=== PATIENT | female | born 1955 | race Caucasian/White ===

== ENCOUNTER → 2019-05-14 11:45 | Outpatient (CLI) | payer OTHER, SELFPAY | PROVIDERS: Visit Provider Physician Assistant | DX: L23.7 Allergic contact dermatitis due to plants, except food (principal); R21 Rash and other nonspecific skin eruption | CPT/HCPCS: 87070; 87077; 87186; 87205 ==

== ENCOUNTER → 2020-02-15 13:43 | Outpatient (CLI) | payer OTHER, SELFPAY ==
[2020-02-17 07:57] LABS: COVID19 Sendout Not Detected (Not Detect)
== END ==
PROVIDERS: Visit Provider Physician Assistant
DX: Z01.818 Encounter for other preprocedural examination (principal)
CPT/HCPCS: 87635

== ENCOUNTER → 2020-02-18 14:31 | Outpatient (CLI) | payer OTHER, SELFPAY ==
--- NOTE | 2020-02-18 15:55 | PM.TREADMILL ---
Cardiac Stress Test Report Referral & Results Date Patient Seen: 02/18/20 Time Patient Seen: 15:55 Requesting provider: Germania Curran Indication: chest pain Rest ECG: sinus rhythm Procedure Note: standard lc protocol 7:01 min 7 METS. Good exercise capacity -7% TORSTEN. Hypertensive response to exercise. No chest pain or anginal symptoms. Resting EKG normal, no ST shifts or arrhythmias. Impression: normal exercise stress test Please note: Actual ECG tracings can be found in the PACS system.
== END ==
PROVIDERS: PCP Family Medicine; Referring Provider Physician Assistant Medical; Visit Provider Physician Assistant Medical
DX: R07.9 Chest pain, unspecified (principal)
CPT/HCPCS: 93017

== ENCOUNTER 2025-04-16 12:11 | Emergency (ER) | payer OTHER, SELFPAY ==
[2025-04-16 12:31] VITALS: BP 150/87; PULSE 64; RESP 18; TEMP 36.7; O2SAT 95; BMI 34.4
--- NOTE | 2025-04-16 15:11 | DI.US.S_ITS ---
PROCEDURE: US PERIPH VENOUS LOW EXTREM LT INDICATIONS: swelling, no injury TECHNIQUE: Real-time imaging, as well as color and pulse Doppler interrogation, were performed of the lower extremity deep veins from the inguinal ligament to the popliteal fossa, with documentation of the visualized calf veins. COMPARISON: None. FINDINGS: The common femoral, femoral, popliteal, and the visualized calf veins are normally compressible, and free of intraluminal thrombus. Color and pulse Doppler demonstrate normal phasic intraluminal flow. There is normal augmentation response to distal compression maneuver. IMPRESSION: No findings of lower extremity deep venous thrombosis. Dictated by: Kael Morillo M.D. on 04/16/2025 at 15:54 Approved by: Kael Morillo M.D. on 04/16/2025 at 15:54
[2025-04-16 16:41] LABS: Culture Indicated Urine Specimen Cultured
--- NOTE | 2025-04-16 16:48 | DI.RAD.S_ITS ---
PROCEDURE: XR TIBIA FIBULA LT 2V INDICATIONS: leg swelling, pain TECHNIQUE: 2 views of the tibia and fibula were acquired. COMPARISON: None. FINDINGS: Bones: No fractures or dislocations. 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 No suspicious bony lesions. Soft tissues: No suspicious soft tissue calcifications or masses. IMPRESSION: No bone abnormality. No suspicious soft tissue finding. Dictated by: Kelsi Serrano M.D. on 04/16/2025 at 17:24 Approved by: Kelsi Serrano M.D. on 04/16/2025 at 17:24
--- NOTE | 2025-04-16 16:48 | DI.RAD.S_ITS ---
PROCEDURE: XR ANKLE LT MIN 3V INDICATIONS: leg swelling TECHNIQUE: Three views of the ankle were acquired. COMPARISON: None. FINDINGS: Bones: No fractures or dislocations. Moderate degenerative changes including spurring at the tibiotalar articulation, dorsal midfoot, and plantar calcaneus. Joint space loss and slight spurring at the medial malleolus. Ankle mortise is normally aligned. No suspicious bony lesions. Soft tissues: No tibiotalar joint effusion. Achilles tendon appears normal. IMPRESSION: No acute abnormality. One chronic appearing degenerative changes. Dictated by: Kelsi Serrano M.D. on 04/16/2025 at 17:22 Approved by: Kelsi Serrano M.D. on 04/16/2025 at 17:24
--- NOTE | 2025-04-16 17:09 | ED_ITS ---
<Statement entered by Alek Edward MD - 05/08/25 07:32> I was personally available for consultation in the Department at the time the patient was seen HPI - Extremity Injury (Lower) General Chief Complaint: Extremity Injury, Lower Stated Complaint: Lt leg swelling, pain x 2 days Time Seen by Provider: 04/16/25 16:38 History of Present Illness HPI Narrative: 70-year-old female presents to the ED with 2 days of left lower leg redness, pain, swelling. No trauma or injuries. No numbness, tingling, weakness. No rashes. Patient is also complaining of suprapubic pressure, urinary discomfort, hematuria since last night. Patient states that she got her last UTI about 30 years ago, no frequent UTIs. No fever, chills, chest pain, shortness of breath, nausea, vomiting, flank pain, lightheadedness, dizziness, syncope. Related Data Home Medications ?Medication ?Instructions ?Recorded ?Confirmed aspirin 81 mg tablet,delayed 81 mg PO DAILY 05/14/19 0 02/24/21 release (Adult Aspirin Regimen) sertraline [Zoloft] PO 05/14/19 02/24/21 Previous Rx's ?Medication ?Instructions ?Recorded cefadroxil 500 mg capsule 1,000 mg (2 x 500 mg) PO Q12 H 10 04/16/25 days #40 caps Allergies Allergy/AdvReac Type Severity Reaction Status Date / Time No Known Drug Allergies Allergy Unverified 02/24/21 14:03 Review of Systems Constitutional Constitutional: Denies chills, Denies fatigue, Denies fever(s), Denies frequent falls, Denies lethargy and Denies weakness Eyes Eyes: Denies change in vision, Denies eye discharge, Denies irritation and Denies loss of vision ENT Ears, Nose, Mouth, and Throat: Denies change in voice, Denies dizziness, Denies neck pain, Denies sore throat and Denies throat swelling Cardiovascular Cardiovascular: Denies chest pain, Denies irregular heart rhythm, Denies lightheadedness, Denies palpitations, Denies dyspnea, Denies dyspnea on exertion and Denies orthopnea Respiratory Respiratory: Denies cough, Denies dyspnea, Denies dyspnea on exertion and Denies wheezing Gastrointestinal Gastrointestinal: Denies abdominal pain, Denies change in bowel habits, Denies diarrhea, Denies nausea and Denies vomiting Genitourinary Genitourinary: Reports hematuria and Reports dysuria Comments: Suprapubic pressure Musculoskeletal Musculoskeletal: Denies neck pain and Denies numbness Integumentary/Breasts Skin/Breast: Denies pruritus, Denies erythema, Denies rash and Denies wounds Neurologic Neurologic: Denies behavioral changes, Denies confusion, Denies dizziness, Denies frequent falls, Denies loss of vision, Denies numbness and Denies weakness Psychiatric Psychiatric: Denies anxiety, Denies behavioral changes, Denies confusion, Denies depression, Denies homicidal ideation and Denies suicidal ideation Endocrine Endocrine: Denies fatigue, Denies flushing and Denies palpitations Hematologic/Lymphatic Hematologic/Lymphatic: Denies easy bruising Allergic/Immunologic Allergic/Immunologic: Denies urticaria, Denies throat swelling and Denies wheezing Patient History Smoking Status: Never smoker Exam Narrative Exam Narrative: Const General:?cooperative, healthy appearing and comfortable [facility] Head:?normal to inspection Ears:?hearing grossly normal bilaterally Nose:?external nose normal Face and sinus:?normal facial exam and sinuses nontender Mouth:?oral mucosae normal Throat:?posterior oropharynx normal Eyes General:?appearance normal, both eyes and all related structures Neck Neck:?normal visual inspection and no lymphadenopathy noted Resp Effort & Inspection:?normal respiratory effort Auscultation:?clear to auscultation bilaterally Cardio Rate:?regular rate Rhythm:?regular rhythm GI Abdomen is soft, nondistended, nontender to palpation. No CVA tenderness. Musculoskeletal/integumentary Left ankle, distal lower leg somewhat warm and tender to touch, erythematous, sw ollen. Neurovascularly intact Neuro General:?patient alert, patient awake and patient oriented x3 Initial Vital Signs Initial Vital Signs: Vital Signs Temperature 98.1 F 04/16/25 12:31 Pulse Rate 64 04/16/25 12:31 Respiratory Rate 18 04/16/25 12:31 Blood Pressure 150/87 H 04/16/25 12:31 Pulse Oximetry 95 04/16/25 12:31 Oxygen Delivery Method Room Air 04/16/25 12:31 Course Orders Ordered: ED Orders 04/16/25 12:45 Urine Culture Stat Urine Microscopic Stat 04/16/25 15:11 US periph venous low extrem lt Stat 04/16/25 16:48 XR ankle LT min 3V Stat XR tibia fibula LT 2V Stat Ondansetron HCl (Ondansetron 4 Mg/2 Ml Inj) 4 mg IV NOW PRN PRN Reason: Nausea And Vomiting Ondansetron HCl (Ondansetron 4 Mg Odt) 4 mg PO NOW PRN PRN Reason: Nausea And Vomiting Vital Signs Vital signs: Vital Signs - 8 hr 04/16/25 12:31 Temperature 98.1 F Pulse Rate 64 Respiratory Rate 18 Blood Pressure 150/87 H Pulse Oximetry 95 Oxygen Delivery Method Room Air MDM - Extremity Injury (Lower) Lab Data Labs: Lab Results 04/16/25 Range/Units 12:45 Urine RBC >100/hpf H (0-5/HPF) Urine WBC >100/hpf H (0-5/HPF) Ur Squamous Epith Cells 1-5 /hpf (0-5/HPF) Ur Transition Epith Cell 0-1/hpf (0-5/HPF) Urine Bacteria Few (2-10) H (None) Ur Culture Indicated? Specimen cultured Vol Urine Centrifuged 10ml (spun) Urine Dip Bedside Urine Glucose Negative Bedside Urine Bilirubin - Negative Bedside Urine Ketone - Negative Urine Specific [place] 1.015 Bedside Urine Occult Blood +++ Bedside Urine pH 6.0 Bedside Urine Protein ++ 100 Bedside Urine Urobilinogen - Negative Bedside Urine Nitrite - Negative Bedside Urine Leukocytes +++ 500 Esterase MDM Narrative Medical decision making narrative: 70-year-old female presents to the ED with 2 days of left lower leg redness, pain, swelling. Concern for DVT versus cellulitis versus fracture/dislocation versus UTI versus other. Will obtain x-rays, ultrasound. Ultrasound with no evidence of DVT. Urine is positive for occult blood, leukocyte esterase, protein. Urine micro with RBC greater than 100, WBC greater than 100. X-rays without acute findings. Antibiotic prescribed to cover both UTI and cellulitis. Recommend follow-up with PCP as soon as possible. ED return precautions were discussed with patient. Patient verbalized understanding. Medical records reviewed: Yes Discharge Plan Departure Patient Disposition: Home Clinical Impression: UTI (urinary tract infection) Qualifiers: Urinary tract infection type: acute cystitis Hematuria presence: with hematuria Qualified Code(s): N30.01 - Acute cystitis with hematuria Cellulitis Qualifiers: Site of cellulitis: extremity Site of cellulitis of extremity: lower extremity Laterality: left Qualified Code(s): L03.116 - Cellulitis of left lower limb Instructions: DI for Cellulitis -- Adult, DI for Urinary Tract Infection (UTI) Activity Restrictions/Additional Instructions: You were evaluated in the emergency department for left lower leg pain and urinary discomfort. Your urine was positive for a urinary tract infection. The ultrasound did not show any blood clots/DVTs. The x-ray did not show any fractures or dislocations. It appears that the swelling and redness in your lower liquid likely be a skin infection/cellulitis. You are being prescribed an antibiotic that will address both the urinary tract infection and the skin infection. Please take it as prescribed. Please follow-up with your PCP as soon as possible. Return to the ED if you have worsening symptoms. Prescriptions: New cefadroxil 500 mg capsule 1,000 mg PO Q12H 10 Days Qty: 40 0RF No Action aspirin [Adult Aspirin Regimen] 81 mg tablet,delayed release (DR/EC) 81 mg PO DAILY sertraline [Zoloft] PO Referrals: Lori Mcotezuma DO [Primary Care Provider, Family Practice] Stand Alone Forms: Patient Portal/API
[2025-04-16 18:35] VITALS: BP 150/77; PULSE 63; RESP 15; O2SAT 95
== END 2025-04-16 18:36 | disposition home or self-care (01) ==
PROVIDERS: Emergency Provider Student in an Organized Health Care Education/Training Program; PCP Family Medicine
DX: N30.01 Acute cystitis with hematuria (principal); L03.116 Cellulitis of left lower limb
CPT/HCPCS: 73590; 73610; 81003; 81015; 87077; 87086; 87186; 93971; 99281

== ENCOUNTER 2025-08-21 10:34 | Inpatient (IN) | payer OTHER, SELFPAY ==
[2025-08-21] VITALS (12 sets, daily range): BP systolic 98–183; BP diastolic 58–89; PULSE 60–95; RESP 12–22; TEMP 36.4–36.9; O2SAT 94–99; BMI 32.1; BMI 32.9
--- NOTE | 2025-08-21 11:07 | ED_ITS ---
HPI - GI Bleed <Radha Strange PA-C - Last Filed: 08/21/25 18:52> General Chief complaint: GI Bleed Stated complaint: lower colon pain blood in stool Time Seen by Provider: 08/21/25 11:06 Source: patient Mode of arrival: Ambulatory History of Present Illness HPI Narrative: Ms. Smith is a pleasant 62-year-old female with a past medical history of anxiety, depression, hip osteoarthritis, HLD, insomnia who presents to the emergency department for left lower quadrant abdominal pain x1 week and bright red blood in her stool today. Patient states she deals with the chronic diarrhea and typically has 1-3 loose bowel movements a day. However over the last week she has described left lower quadrant ?colon? pain that originally started near her belly button in his since moved down to the left side. She also reports that she has been having headache and because of this has been taking Excedrin migraine every 8 hours. Her headache is improved. She started feeling shaky and overall weak a few days ago. She occasionally gets strong sense of urgency to have a bowel movement and occasionally does not make it to the toilet. Today this occurred and she noticed bright red blood in 1 small clot of blood mixed in with brown stool. She denies any black or tarry stools. She denies rectal pain. She denies epigastric abdominal pain. She denies vomiting or hematemesis but does report nausea. She denies any prior abdominal surgeries. She denies blood thinner use. Reports that over the last week she has had intermittent left-sided chest pain however this is not currently present. She denies fevers, chills, dysuria, hematuria, flank pain, constipation. Her prescription medications are sertraline, bupropion, meloxicam, pravastatin, trazodone. Reports that she has had a colonoscopy before but she believes she is due for another 1 next year. Related Data Home Medications ?Medication ?Instructions ?Recorded ?Confirmed aspirin 81 mg tablet,delayed 81 mg PO DAILY 05/14/19 0 02/24/21 release (Adult Aspirin Regimen) sertraline [Zoloft] PO 05/14/19 02/24/21 Allergies Allergy/AdvReac Type Severity Reaction Status Date / Time No Known Drug Allergies Allergy Unverified 02/24/21 14:03 Review of Systems <Radha Strange PA-C - Last Filed: 08/21/25 18:52> Review of Systems ROS Unobtainable: All systems reviewed & are unremarkable except as noted in HPI and below Patient History <Radha Strange PA-C - Last Filed: 08/21/25 18:52> Social History Smoking Status: Never smoker Smoking Status: Never smoker Exam <Radha Strange PA-C - Last Filed: 08/21/25 18:52> Narrative Exam Narrative: GENERAL: 70 year old patient appears stated age. Well-developed patient, in no acute distress. HEAD: Atraumatic. Normocephalic. EYES: No scleral icterus. No injection or drainage. NECK: Trachea midline. Cervical ROM intact. CARDIOVASCULAR: Regular rate and rhythm. RESPIRATORY: ?Nonlabored respirations. ?Speaking in clear, full sentences. ?Clear to auscultation. Breath sounds equal bilaterally. No wheezes, rales, or rhonchi. ? GASTROINTESTINAL: Abdomen soft, nondistended. BS present. Mild tenderness left lower quadrant. No rebound or guarding. RECTAL: Soft external skin tag. No visible BRB, fissure or external hemorrhoid. Hemocult negative EXTREMITIES: No LE edema. NEURO: AOx3. ?Clear speech. ? SKIN: No rash or erythema of visible areas Initial Vital Signs Initial Vital Signs: Vital Signs Temperature 97.5 F L 08/21/25 10:44 Pulse Rate 95 H 08/21/25 10:44 Respiratory Rate 18 08/21/25 10:44 Blood Pressure 183/89 H 08/21/25 10:44 Pulse Oximetry 94 08/21/25 10:44 Oxygen Delivery Method Room Air 08/21/25 10:44 <Gloria Montalvo MD - Last Filed: 08/21/25 19:51> Initial Vital Signs Initial Vital Signs: Vital Signs Temperature 97.5 F L 08/21/25 10:44 Pulse Rate 95 H 08/21/25 10:44 Respiratory Rate 18 08/21/25 10:44 Blood Pressure 183/89 H 08/21/25 10:44 Pulse Oximetry 94 08/21/25 10:44 Oxygen Delivery Method Room Air 08/21/25 10:44 Scores <Radha Strange PA-C - Last Filed: 08/21/25 18:52> HEART Score Heart Score history: Slightly Suspicious Heart Score EKG: Non-Specific repolarization disturbance Heart Score Age: > or = 65 years old Heart Score risk factors: 1-2 risk factors Heart Score troponin: < or = to normal limit Heart Score Total: 4 <Gloria Montalvo MD - Last Filed: 08/21/25 19:51> HEART Score Heart Score Total: 4 Course <Radha Strange PA-C - Last Filed: 08/21/25 18:52> Orders Ordered: ED Orders 08/21/25 11:15 XR chest 1V Stat EKG-12 Lead Stat 08/21/25 11:17 CT abdomen pelvis w con Stat 08/21/25 11:40 Complete Blood Count AUTO DIFF Stat Comprehensive Metabolic Panel Stat Lipase Stat Magnesium Stat PTT Partial Thromboplastin Jhon Stat Prothrombin Time INR Stat Troponin I Stat 08/21/25 17:04 Troponin I Stat Acetaminophen (Acetaminophen 325 Mg Tablet) 650 mg PO Q6H PRN PRN Reason: Fever/Mild Pain (1-3) Hydromorphone HCl (Hydromorphone Hcl 0.5 Mg/0.5 Ml Syringe) 0.5 mg IV Q2H PRN PRN Reason: Pain, Severe (7-10) Sodium Chloride (Normal Saline 0.9%) 1,000 mls @ 100 mls/hr IV CONT EARLENE Last Admin: 08/21/25 16:00 Dose: 100 mls/hr Documented By: RB Naloxone HCl (Naloxone 0.4 Mg/Ml Vial) 0.2 mg IV Q2MIN PRN PRN Reason: Opiate Reversal Ondansetron HCl (Ondansetron 4 Mg/2 Ml Inj) 4 mg IV Q8HR PRN PRN Reason: Nausea And Vomiting Discontinued Medications Acetaminophen (Acetaminophen 325 Mg Tablet) 975 mg PO NOW ONE Stop: 08/21/25 11:16 Last Admin: 08/21/25 12:20 Dose: 975 mg Documented By: RB Sodium Chloride (Normal Saline 0.9%) 1,000 mls @ 1,000 mls/hr IV BOLUS ONE Stop: 08/21/25 12:14 Last Infusion: 08/21/25 13:50 Dose: Infused Documented By: Admin: 08/21/25 12:24 Dose: 1,000 mls/hr Documented By: RB POTASSIUM CHLORIDE IN WATER (Potassium Cl 10 Meq/100 Ml Merissa) 10 meq in 100 mls @ 100 mls/hr IV Q1H EARLENE Stop: 08/21/25 16:14 Last Infusion: 08/21/25 17:14 Dose: Infused Documented By: Admin: 08/21/25 15:50 Dose: 100 mls/hr Documented By: Infusion: 08/21/25 15:45 Dose: Infused Documented By: Admin: 08/21/25 14:45 Dose: 100 mls/hr Documented By: Infusion: 08/21/25 14:45 Dose: Infused Documented By: Admin: 08/21/25 13:49 Dose: 100 mls/hr Documented By: Infusion: 08/21/25 13:25 Dose: Infused Documented By: Admin: 08/21/25 12:25 Dose: 100 mls/hr Documented By: RB Ondansetron HCl (Ondansetron 4 Mg/2 Ml Inj) 4 mg IV NOW ONE Stop: 08/21/25 11:16 Last Admin: 08/21/25 12:20 Dose: 4 mg Documented By: RB Pantoprazole Sodium (Pantoprazole 40 Mg Vial) 40 mg IV NOW ONE Stop: 08/21/25 11:16 Last Admin: 08/21/25 12:20 Dose: 40 mg Documented By: RB Vital Signs Vital signs: Vital Signs - 8 hr 08/21/25 12:28 08/21/25 13:52 08/21/25 14:44 Temperature 98.5 F Pulse Rate 74 67 68 Respiratory Rate 22 19 Blood Pressure 109/72 98/69 98/65 Pulse Oximetry 95 94 99 Oxygen Delivery Method Room Air Room Air Room Air 08/21/25 15:00 08/21/25 15:30 Temperature Pulse Rate 64 60 Respiratory Rate 20 18 Blood Pressure 126/58 L 134/63 Pulse Oximetry 95 94 Oxygen Delivery Method Room Air Room Air <Gloria Montalvo MD - Last Filed: 08/21/25 19:51> Orders Ordered: ED Orders 08/21/25 11:15 XR chest 1V Stat EKG-12 Lead Stat 08/21/25 11:17 CT abdomen pelvis w con Stat 08/21/25 11:40 Complete Blood Count AUTO DIFF Stat Comprehensive Metabolic Panel Stat Lipase Stat Magnesium Stat PTT Partial Thromboplastin Jhon Stat Prothrombin Time INR Stat Troponin I Stat 08/21/25 17:04 Troponin I Stat Acetaminophen (Acetaminophen 325 Mg Tablet) 650 mg PO Q6H PRN PRN Reason: Fever/Mild Pain (1-3) Hydromorphone HCl (Hydromorphone Hcl 0.5 Mg/0.5 Ml Syringe) 0.5 mg IV Q2H PRN PRN Reason: Pain, Severe (7-10) Sodium Chloride (Normal Saline 0.9%) 1,000 mls @ 100 mls/hr IV CONT EARLENE Last Admin: 08/21/25 16:00 Dose: 100 mls/hr Documented By: RB Naloxone HCl (Naloxone 0.4 Mg/Ml Vial) 0.2 mg IV Q2MIN PRN PRN Reason: Opiate Reversal Ondansetron HCl (Ondansetron 4 Mg/2 Ml Inj) 4 mg IV Q8HR PRN PRN Reason: Nausea And Vomiting Discontinued Medications Acetaminophen (Acetaminophen 325 Mg Tablet) 975 mg PO NOW ONE Stop: 08/21/25 11:16 Last Admin: 08/21/25 12:20 Dose: 975 mg Documented By: RB Sodium Chloride (Normal Saline 0.9%) 1,000 mls @ 1,000 mls/hr IV BOLUS ONE Stop: 08/21/25 12:14 Last Infusion: 08/21/25 13:50 Dose: Infused Documented By: Admin: 08/21/25 12:24 Dose: 1,000 mls/hr Documented By: RB POTASSIUM CHLORIDE IN WATER (Potassium Cl 10 Meq/100 Ml Merissa) 10 meq in 100 mls @ 100 mls/hr IV Q1H EARLENE Stop: 08/21/25 16:14 Last Infusion: 08/21/25 17:14 Dose: Infused Documented By: Admin: 08/21/25 15:50 Dose: 100 mls/hr Documented By: Infusion: 08/21/25 15:45 Dose: Infused Documented By: Admin: 08/21/25 14:45 Dose: 100 mls/hr Documented By: Infusion: 08/21/25 14:45 Dose: Infused Documented By: Admin: 08/21/25 13:49 Dose: 100 mls/hr Documented By: Infusion: 08/21/25 13:25 Dose: Infused Documented By: Admin: 08/21/25 12:25 Dose: 100 mls/hr Documented By: RB Ondansetron HCl (Ondansetron 4 Mg/2 Ml Inj) 4 mg IV NOW ONE Stop: 08/21/25 11:16 Last Admin: 08/21/25 12:20 Dose: 4 mg Documented By: RB Pantoprazole Sodium (Pantoprazole 40 Mg Vial) 40 mg IV NOW ONE Stop: 08/21/25 11:16 Last Admin: 08/21/25 12:20 Dose: 40 mg Documented By: RB Vital Signs Vital signs: Vital Signs - 8 hr 08/21/25 12:28 08/21/25 13:52 08/21/25 14:44 Temperature 98.5 F Pulse Rate 74 67 68 Respiratory Rate 22 19 Blood Pressure 109/72 98/69 98/65 Pulse Oximetry 95 94 99 Oxygen Delivery Method Room Air Room Air Room Air 08/21/25 15:00 08/21/25 15:30 Temperature Pulse Rate 64 60 Respiratory Rate 20 18 Blood Pressure 126/58 L 134/63 Pulse Oximetry 95 94 Oxygen Delivery Method Room Air Room Air MDM - GI Bleed <Radha Strange PA-C - Last Filed: 08/21/25 18:52> Medical Records Attestation: I reviewed the patient's medical records. Lab Data 08/21/25 11:40 08/21/25 17:04 Labs: Lab Results 08/21/25 Range/Units 11:40 WBC 12.1 H (4.5-11.0) X10^3/uL RBC 4.82 (4.0-5.2) X10^6/uL Hgb 14.2 (12.0-16.0) g/dL Hct 41.7 (36-46) % MCV 86.4 (80-100) fL MCH 29.4 (26-34) PG MCHC 34.0 (30-36) % RDW 13.3 (11.6-14.8) % Plt Count 422 H (150-400) X10^3/uL Neut % (Auto) 76.4 H (50-75) % Lymph % (Auto) 12.8 L (25-40) % [place] % (Auto) 9.4 (3-14) % Eos % (Auto) 0.7 L (2-4) % Baso % (Auto) 0.7 (0-2) % Neut # (Auto) 9200 H (6182-0805) /uL Lymph # (Auto) 1600 (5638-2027) /uL [place] # (Auto) 1100 H (0-900) /uL Eos # (Auto) 100 (0-450) /uL Baso # (Auto) 100 (0-100) /uL PT 12.5 (9.4-12.5) SECONDS INR 1.1 (0.9-1.3) APTT 26 (25.1-36.5) SECONDS Sodium 135 L (137-145) mmol/L Potassium 2.7 L* (3.4-5.1) mmol/L Chloride 94 L (98-107) mmol/L Carbon Dioxide 29 (22-32) mmol/L BUN 12 (7-17) mg/dL Creatinine 0.73 (0.52-1.04) mg/dL Estimated GFR > 60 (>60) mL/min BUN/Creatinine Ratio 16.4 (6-22) Glucose 135 H (70-99) mg/dL Calcium 9.5 (8.4-10.2) mg/dL Magnesium 1.7 (1.6-2.3) mg/dL Total Bilirubin 0.4 (0.2-1.3) mg/dL AST 24 (14-36) IU/L ALT 17 (<35) IU/L Alkaline Phosphatase 90 (38-126) U/L Troponin I < 0.012 (0.01-0.034) ng/mL Total Protein 7.8 (6.3-8.2) g/dL Albumin 4.3 (3.5-5.0) g/dL Globulin 3.5 (1.7-4.1) g/dL Albumin/Globulin Ratio 1.2 (1.0-2.8) Lipase 250 (23-300) U/L Point of Care Testing Stool Occult Blood Negative Imaging Data Chest x-ray: Radiologist's Impression: PROCEDURE: XR CHEST 1V INDICATIONS: int L sided CP, abd pain TECHNIQUE: One view of the chest was acquired. COMPARISON: None. FINDINGS: Surgical changes and devices: None. Lungs and pleura: Lungs are clear. No pleural effusions or pneumothorax. Mediastinum: Mediastinal contours appear normal. Heart size is minimally prominent. Bones and chest wall: No suspicious bony lesions. Overlying soft tissues appear unremarkable. IMPRESSION: No acute pulmonary process. Dictated by: Ruchi Linder M.D. on 08/21/2025 at 12:01 Approved by: Ruchi Linder M.D. on 08/21/2025 at 12:02 CT A/P: Radiologist's Impression: PROCEDURE: CT ABDOMEN PELVIS W CON INDICATIONS: LLQ abd pain; BRB in stool today; chronic diarrhea, nausea TECHNIQUE: After the administration of intravenous contrast, axial sections acquired from the lung bases to the pubic symphysis. Coronal and sagittal reformats were performed. For radiation dose reduction, the following was used: automated exposure control, adjustment of mA and/or kV according to patient size. COMPARISON: None. FINDINGS: Image quality: Diagnostic. Lower Chest: No significant findings. ABDOMEN: Liver: No solid mass. Gallbladder: Luminal stones without wall thickening. Biliary ducts: No biliary dilation. Pancreas: No ductal dilation. Spleen: Size is within normal limits. Adrenal Glands: No adrenal nodules. Kidneys and Ureters: No hydronephrosis. No solid mass. No complex renal cystic lesion which requires follow up. Stomach and Bowel: No obstruction. There is collapse of the sigmoid colon with wall thickening extending to a less severe degree within the descending colon. Very minimal pericolonic inflammatory change.. Hiatal hernia with prominent distal esophageal thickening. Peritoneum: No abnormal intraperitoneal fluid. No free air. Ventral Wall: No significant ventral hernia. Abdominal Nodes: No retroperitoneal or mesenteric adenopathy by size criteria. Multiple punctate mesenteric lymph nodes are present particularly within the lower abdomen and pelvis. Vessels: Aorta and inferior vena cava are normal in size. PELVIS: Pelvic Organs: Unremarkable. Bladder: No bladder wall thickening, accounting for underdistention. Pelvic Nodes: No enlarged lymph nodes. Multiple punctate mesenteric lymph nodes are present within the pelvis. Miscellaneous: No inguinal hernias are seen. Bones: No aggressive osseous abnormality. IMPRESSION: Appearance of thickening and incomplete distention within the left colon as described above. Overall appearance is suspicious for colitis given mild appearance of surrounding inflammatory change. This is likely related to infection/inflammation. No abscess. Dictated by: Ruchi Linder M.D. on 08/21/2025 at 12:54 Approved by: Ruchi Linder M.D. on 08/21/2025 at 12:57 MDM Narrative Medical decision making narrative: 62-year-old female with a past medical history of anxiety, depression, hip osteoarthritis, HLD, insomnia who presents to the emergency department for left lower quadrant abdominal pain x1 week and bright red blood in her stool today. Differential diagnosis includes but is not limited to diverticulitis, diverticulosis, hemorrhoid, anal fissure, colitis, anemia, GI bleed, gastritis, electrolyte abnormality, appendicitis, inflammatory bowel disease, etc. On exam the patient is in no acute distress, nontoxic appearing. Vital signs reveal elevated BP 183/89, heart rate 95, normal respiratory rate, normal temperature, normal oxygen saturation. She has a very mild tenderness to palpation of the left lower quadrant of the abdomen, no rebound or guarding. Lungs are clear to auscultation bilaterally. She had 1 episode of bright red blood in her stool today, she has not experienced this before. She has been taking more NSAIDs than usual due to headache this last week. She has been having intermittent left-sided chest pain not currently present. We will obtain abdominal labs including EKG and troponin, chest x-ray, CT abdomen pelvis with IV contrast, treat with IV Protonix, fluids, nausea medication and reassess. We will perform rectal exam once the patient is able to get into a room with a stretcher. Rectal exam did not reveal any gross blood, no active bleeding, no obvious fissure or hemorrhoid. Labs reveal low potassium, 2.7. 40 mEq IV potassium ordered. Magnesium is normal 1.7. Elevated WBCs 12.1. Platelets slightly elevated 422. Neutrophils 76.4%. Normal coags. Sodium 135, chloride 94. Glucose 135. Troponin undetectable. Normal LFTs. Normal lipase 250. ECG does reveal T-wave inversions V1, V2, V3. Normal sinus rhythm with a rate of 74 beats per minute and QTC of 483. ED MD carranza repeat EKG after potassium repletion. On re-evaluation of patient, she does feel slightly better however still quite weak, blood pressure is on the lower end of normal. Discussed case with the attending ED physician Dr. Montalvo. At this time will hold off on antibiotics for colitis until we can obtain stool culture, however we will treat patient with liquid diet. I do believe she warrants admission to the hospital for continued electrolyte repletion. Urine and stool studies are still pending at this time. Patient is agreeable to admission. 1525: Discussed case with hospitalist, Dr. Bryan. He graciously accepts the patient for admission, observation for continued monitoring of hypokalemia in the setting of colitis. Will try to get records of old EKG from [facility] if possible as patient has no priors available in this system. Patient is agreeable to transfer to the floor and stable at this time. <Gloria Montalvo MD - Last Filed: 08/21/25 19:51> Lab Data Labs: Lab Results 08/21/25 Range/Units 11:40 WBC 12.1 H (4.5-11.0) X10^3/uL RBC 4.82 (4.0-5.2) X10^6/uL Hgb 14.2 (12.0-16.0) g/dL Hct 41.7 (36-46) % MCV 86.4 (80-100) fL MCH 29.4 (26-34) PG MCHC 34.0 (30-36) % RDW 13.3 (11.6-14.8) % Plt Count 422 H (150-400) X10^3/uL Neut % (Auto) 76.4 H (50-75) % Lymph % (Auto) 12.8 L (25-40) % [place] % (Auto) 9.4 (3-14) % Eos % (Auto) 0.7 L (2-4) % Baso % (Auto) 0.7 (0-2) % Neut # (Auto) 9200 H (3824-9500) /uL Lymph # (Auto) 1600 (9711-9437) /uL [place] # (Auto) 1100 H (0-900) /uL Eos # (Auto) 100 (0-450) /uL Baso # (Auto) 100 (0-100) /uL PT 12.5 (9.4-12.5) SECONDS INR 1.1 (0.9-1.3) APTT 26 (25.1-36.5) SECONDS Sodium 135 L (137-145) mmol/L Potassium 2.7 L* (3.4-5.1) mmol/L Chloride 94 L (98-107) mmol/L Carbon Dioxide 29 (22-32) mmol/L BUN 12 (7-17) mg/dL Creatinine 0.73 (0.52-1.04) mg/dL Estimated GFR > 60 (>60) mL/min BUN/Creatinine Ratio 16.4 (6-22) Glucose 135 H (70-99) mg/dL Calcium 9.5 (8.4-10.2) mg/dL Magnesium 1.7 (1.6-2.3) mg/dL Total Bilirubin 0.4 (0.2-1.3) mg/dL AST 24 (14-36) IU/L ALT 17 (<35) IU/L Alkaline Phosphatase 90 (38-126) U/L Troponin I < 0.012 (0.01-0.034) ng/mL Total Protein 7.8 (6.3-8.2) g/dL Albumin 4.3 (3.5-5.0) g/dL Globulin 3.5 (1.7-4.1) g/dL Albumin/Globulin Ratio 1.2 (1.0-2.8) Lipase 250 (23-300) U/L Point of Care Testing Stool Occult Blood Negative Discharge Plan Departure Patient Disposition: Admitted as Observation Clinical Impression: Blood in stool, santiago, Hypokalemia, Colitis Diarrhea Qualifiers: Diarrhea type: unspecified type Qualified Code(s): R19.7 - Diarrhea, unspecified Admit Date/Time: 08/21/25 15:31 Admit Provider: Pete Bryan ED Sign-out <Gloria Montalvo MD - Last Filed: 08/21/25 19:51> Cosign ED Attending Isma Attestation: I was immediately available in the department for consultation throughout this patient's visit. Patient was independently evaluated, case was reviewed in real-time with CHANTE Strange, workup evaluated and agree with plans for hospitalization. Gloria Montalvo MD
--- NOTE | 2025-08-21 11:15 | EKG_ITS ---
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
--- NOTE | 2025-08-21 11:15 | DI.RAD.S_ITS ---
PROCEDURE: XR CHEST 1V INDICATIONS: int L sided CP, abd pain TECHNIQUE: One view of the chest was acquired. COMPARISON: None. FINDINGS: Surgical changes and devices: None. Lungs and pleura: Lungs are clear. No pleural effusions or pneumothorax. Mediastinum: Mediastinal contours appear normal. Heart size is minimally prominent. Bones and chest wall: No suspicious bony lesions. Overlying soft tissues appear unremarkable. IMPRESSION: No acute pulmonary process. Dictated by: Ruchi Linder M.D. on 08/21/2025 at 12:01 Approved by: Ruchi Linder M.D. on 08/21/2025 at 12:02
--- NOTE | 2025-08-21 11:17 | DI.CT.S_ITS ---
PROCEDURE: CT ABDOMEN PELVIS W CON INDICATIONS: LLQ abd pain; BRB in stool today; chronic diarrhea, nausea TECHNIQUE: After the administration of intravenous contrast, axial sections acquired from the lung bases to the pubic symphysis. Coronal and sagittal reformats were performed. For radiation dose reduction, the following was used: automated exposure control, adjustment of mA and/or kV according to patient size. COMPARISON: None. FINDINGS: Image quality: Diagnostic. Lower Chest: No significant findings. ABDOMEN: Liver: No solid mass. Gallbladder: Luminal stones without wall thickening. Biliary ducts: No biliary dilation. Pancreas: No ductal dilation. Spleen: Size is within normal limits. Adrenal Glands: No adrenal nodules. Kidneys and Ureters: No hydronephrosis. No solid mass. No complex renal cystic lesion which requires follow up. Stomach and Bowel: No obstruction. There is collapse of the sigmoid colon with wall thickening extending to a less severe degree within the descending colon. Very minimal pericolonic inflammatory change.. Hiatal hernia with prominent distal esophageal thickening. Peritoneum: No abnormal intraperitoneal fluid. No free air. Ventral Wall: No significant ventral hernia. Abdominal Nodes: No retroperitoneal or mesenteric adenopathy by size criteria. Multiple punctate mesenteric lymph nodes are present particularly within the lower abdomen and pelvis. Vessels: Aorta and inferior vena cava are normal in size. PELVIS: Pelvic Organs: Unremarkable. Bladder: No bladder wall thickening, accounting for underdistention. Pelvic Nodes: No enlarged lymph nodes. Multiple punctate mesenteric lymph nodes are present within the pelvis. Miscellaneous: No inguinal hernias are seen. Bones: No aggressive osseous abnormality. IMPRESSION: Appearance of thickening and incomplete distention within the left colon as described above. Overall appearance is suspicious for colitis given mild appearance of surrounding inflammatory change. This is likely related to infection/inflammation. No abscess. Dictated by: Ruchi Linder M.D. on 08/21/2025 at 12:54 Approved by: Ruchi Linder M.D. on 08/21/2025 at 12:57
[2025-08-21 11:51] LABS: Add Manual Diff / Slide Review NO; Hematocrit 41.7 % (36-46); Hemoglobin 14.2 g/dL (12.0-16.0); Lymphocytes Absolute Auto 1600 /uL (1100-4500); Mean Corpuscular HGB Conc 34.0 % (30-36); Mean Corpuscular Hemoglobin 29.4 PG (26-34); Mean Corpuscular Volume 86.4 fL (80-100); Platelet Count 422 X10^3/uL (150-400)
[2025-08-21 11:57] LABS: INR 1.1 (0.9-1.3); Prothrombin Time 12.5 SECONDS (9.4-12.5)
[2025-08-21 12:00] LABS: PTT Partial Thromboplastin Tim 26 SECONDS (25.1-36.5)
[2025-08-21 12:01] LABS: Alanine Aminotransferase 17 IU/L (<35); Albumin 4.3 g/dL (3.5-5.0); Albumin Globulin Ratio 1.2 (1.0-2.8); Alkaline Phosphatase 90 U/L (38-126); Blood Urea Nitrogen 12 mg/dL (7-17); Calcium 9.5 mg/dL (8.4-10.2); Carbon Dioxide 29 mmol/L (22-32); Chloride 94 mmol/L (98-107); Estimated Glomerular Filt Rate > 60 mL/min (>60); Globulin 3.5 g/dL (1.7-4.1); Glucose 135 mg/dL (70-99); HEMOLYSIS < 15 (0-50); Lipase 250 U/L (23-300); Magnesium 1.7 mg/dL (1.6-2.3); Sodium 135 mmol/L (137-145); Total Protein 7.8 g/dL (6.3-8.2)
[2025-08-21 12:03] LABS: Potassium 2.7 mmol/L (3.4-5.1)
[2025-08-21 12:13] LABS: Troponin I < 0.012 ng/mL (0.01-0.034)
[2025-08-21] MEDS: ACETAMINOPHEN 325 MG TABLET 975 MG PO (12:20)
[2025-08-21] MEDS: PANTOPRAZOLE 40 MG VIAL IV (12:20)
[2025-08-21] MEDS: ONDANSETRON 4 MG/2 ML INJ IV ×2 (12:20→22:47)
[2025-08-21] MEDS: SODIUM CHLORIDE 0.9% 1,000 ML 1000 ML IV (12:24)
[2025-08-21] MEDS: POTASSIUM CHLORIDE IN WATER 10 MEQ/100 ML PIGGYBACK 100 MEQ IV ×4 (12:25→15:50)
--- NOTE | 2025-08-21 15:57 | PM.HP.1 ---
History of Present Illness History of Present Illness Date Patient Seen: 08/21/25 Time Patient Seen: 15:58 Chief complaint: lower colon pain blood in stool Narrative: Patient was a 62-year-old female with a history of anxiety, depression, osteoarthritis, HLD, insomnia, and chronic diarrhea. She was had diarrhea for as long as she can remember. She presented today because of abdominal cramping, left lower quadrant pain, and transient bright red blood per rectum. She denies nausea. She he was not currently followed by GI. She was no history of inflammatory bowel disease. She also denies history of diverticulitis. Imaging in the ED was fairly unremarkable. Her potassium was 2.7, and 40 mEq was started in the ED. ECG reveals T-wave inversions V1 through V3 which is on remarkable and unchanged when compared to a previous ECG from [facility]. She denies any chest pain, or dyspnea. She lives in [place]. ROS: All else reviewed and otherwise unremarkable except as noted in the history and physical. Objective: T 98.5?, BP 98/65, pulse 68, respirations 19, SpO2 99% to 0 L. NAD, alert and oriented, fluent speech, calm. Normocephalic skull, EOMI, anicteric sclera, symmetric pupils. Oropharynx unremarkable, no droop. Neck supple, midline trachea, no adenopathy. Lungs clear, normal rate and effort. Heart regular, no murmur gallop or rub. Abdomen is soft, non distended and non tender. Extremities are free of edema. Skin is free of rash or lesions. Joints are not swollen or deformed. Judgment appears to be normal. ECG: Sinus rhythm with T-wave inversions V1 through V3 and no other changes noted. This is unchanged from prior. Laboratories are notable for a white count of 12.1 and a potassium of 2.7. IMAGING: CTAP: Appearance of thickening and incomplete distention within the left colon as described above. Overall appearance is suspicious for colitis given mild appearance of surrounding inflammatory change. This is likely related to infection/inflammation. No abscess. CXR: No acute pulmonary process A/P: 1. Acute on chronic diarrhea, active. 2. Transient rectal bleeding, improved. Stable hemoglobin. 3. Severe hypokalemia, active. 4. Colitis on CT scan. Active. 5. Abnormal ECG with T-wave inversions, stable compared to previous. 6. Hyponatremia with sodium 135, active. PLAN: -stool PCR. -IV fluids with normal saline. -potassium repletion and monitor. -monitor for rectal bleeding, monitor hemoglobin. Anticipate 1 midnight in the hospital, supports inpatient status. Full resuscitation. is proxy decision maker. [facility] Social History Smoking Status: Never smoker Meds Home Medications and Allergies Home Medications ?Medication ?Instructions ?Recorded ?Confirmed ?Type aspirin 81 mg tablet,delayed 81 mg PO DAILY 05/14/19 02/24/21 History release (Adult Aspirin Regimen) sertraline [Zoloft] PO 05/14/19 02/24/21 History Allergies Allergy/AdvReac Type Severity Reaction Status Date / Time No Known Drug Allergies Allergy Unverified 02/24/21 14:03 Exam Vital Signs (past 8 hours): - 08/21/25 10:44 08/21/25 12:28 08/21/25 13:52 Temperature 97.5 F L 98.5 F Pulse Rate 95 H 74 67 Respiratory Rate 18 22 Blood Pressure 183/89 H 109/72 98/69 Pulse Oximetry 94 95 94 Oxygen Delivery Method Room Air Room Air Room Air 08/21/25 14:44 Temperature Pulse Rate 68 Respiratory Rate 19 Blood Pressure 98/65 Pulse Oximetry 99 Oxygen Delivery Method Room Air Oxygen Delivery Method Room Air Objective Labs 08/21/25 11:40 08/21/25 11:40 Labs: Laboratory Results - last 24 hr 08/21/25 11:40 WBC 12.1 H RBC 4.82 Hgb 14.2 Hct 41.7 MCV 86.4 MCH 29.4 MCHC 34.0 RDW 13.3 Plt Count 422 H Neut % (Auto) 76.4 H Lymph % (Auto) 12.8 L [place] % (Auto) 9.4 Eos % (Auto) 0.7 L Baso % (Auto) 0.7 Neut # (Auto) 9200 H Lymph # (Auto) 1600 [place] # (Auto) 1100 H Eos # (Auto) 100 Baso # (Auto) 100 PT 12.5 INR 1.1 APTT 26 Sodium 135 L Potassium 2.7 L* Chloride 94 L Carbon Dioxide 29 BUN 12 Creatinine 0.73 Estimated GFR > 60 BUN/Creatinine Ratio 16.4 Glucose 135 H Calcium 9.5 Magnesium 1.7 Total Bilirubin 0.4 AST 24 ALT 17 Alkaline Phosphatase 90 Troponin I < 0.012 Total Protein 7.8 Albumin 4.3 Globulin 3.5 Albumin/Globulin Ratio 1.2 Lipase 250 Assessment & Plan Time-Based Coding :: 35 min spent with patient and on the chart (including review of chart, obtaining history, exam, reviewing outside data, placing orders, documenting exam and treatment plan, and counseling patient) on 08/21. Quality MIPS - Admit I confirm the patient?s Advance Care Plan is present, Code status is documented, Surrogate decision maker is in patient?s record [If Yes, STOP here]: Yes MIPS - Meds 'Current medications' to include all prescriptions, [id number] products, herbals, cannabis/cannabidiol products, and vitamin/mineral/dietary (nutritional) supplements. I have utilized all available resources to obtain, update, or review the patient?s current medications. [If Yes, STOP here]: Yes
[2025-08-21] MEDS: SODIUM CHLORIDE 0.9% 1,000 ML 100 ML IV (16:00)
[2025-08-21 17:35] LABS: Troponin I < 0.012 ng/mL (0.01-0.034)
[2025-08-21 18:59] LABS: Blood Urea Nitrogen 10 mg/dL (7-17); Calcium 7.8 mg/dL (8.4-10.2); Carbon Dioxide 27 mmol/L (22-32); Chloride 100 mmol/L (98-107); Estimated Glomerular Filt Rate > 60 mL/min (>60); Glucose 95 mg/dL (70-99); HEMOLYSIS < 15 (0-50); Potassium 3.0 mmol/L (3.4-5.1); Sodium 135 mmol/L (137-145)
--- NOTE | 2025-08-21 19:28 | PC.NURSE ---
REport received from Zurdo Ramsey RN
--- NOTE | 2025-08-21 21:37 | W.PC.EDHO ---
Report given to CORAZON Aguayo
[2025-08-21] MEDS: ACETAMINOPHEN 325 MG TABLET 650 MG PO (22:47)
[2025-08-22 01:00] VITALS: BP 80/53; PULSE 72; RESP 16; TEMP 36.9; O2SAT 88
[2025-08-22 05:00] VITALS: BP 97/63; PULSE 68; RESP 16; TEMP 37.1; O2SAT 95
[2025-08-22] MEDS: SODIUM CHLORIDE 0.9% 1,000 ML 100 ML IV (05:09)
[2025-08-22 06:39] LABS: Add Manual Diff / Slide Review NO; Hematocrit 33.4 % (36-46); Hemoglobin 11.5 g/dL (12.0-16.0); Lymphocytes Absolute Auto 1600 /uL (1100-4500); Mean Corpuscular HGB Conc 34.3 % (30-36); Mean Corpuscular Hemoglobin 29.9 PG (26-34); Mean Corpuscular Volume 87.3 fL (80-100); Platelet Count 291 X10^3/uL (150-400)
[2025-08-22 06:51] LABS: Blood Urea Nitrogen 6 mg/dL (7-17); Calcium 7.8 mg/dL (8.4-10.2); Carbon Dioxide 31 mmol/L (22-32); Chloride 102 mmol/L (98-107); Estimated Glomerular Filt Rate > 60 mL/min (>60); Glucose 99 mg/dL (70-99); HEMOLYSIS < 15 (0-50); Magnesium 1.5 mg/dL (1.6-2.3); Potassium 3.0 mmol/L (3.4-5.1); Sodium 138 mmol/L (137-145)
[2025-08-22 08:00] VITALS: BP 101/64; PULSE 69; RESP 20; TEMP 37.1; O2SAT 95
[2025-08-22] MEDS: ACETAMINOPHEN 325 MG TABLET 650 MG PO ×3 (08:34→20:12)
[2025-08-22] MEDS: SERTRALINE 50 MG TABLET 100 MG PO (09:26)
[2025-08-22] MEDS: PRAVASTATIN 20 MG TABLET PO (09:26)
--- NOTE | 2025-08-22 09:34 | PM.PN.1 ---
Subjective Subjective Date Patient Seen: 08/22/25 Interval history: 62-year-old female with a history of anxiety, depression, osteoarthritis, HLD, insomnia, and chronic diarrhea. She was had diarrhea for as long as she can remember. She presented today because of abdominal cramping, left lower quadrant pain, and transient bright red blood per rectum. She denies nausea. She he was not currently followed by GI. She was no history of inflammatory bowel disease. She also denies history of diverticulitis. Imaging in the ED was fairly unremarkable. Her potassium was 2.7, and 40 mEq was started in the ED. ECG reveals T-wave inversions V1 through V3 which is on remarkable and unchanged when compared to a previous ECG from [facility]. She denies any chest pain, or dyspnea. She lives in [place]. 08/22: Continues with liquid stool now with blood clots. First attempt today at obtaining stool sample was contaminated by urine. Hoping to get that done today as C diff is certainly a possibility. Hemoglobin dropped from 14.2 down to 11.5. Magnesium dropped 1.7 down to 1.5. Potassium remained at 3.0 despite receiving IV potassium in the ED. Discussed with General surgery regarding potential for colonoscopy at some point. We will supplement with potassium and magnesium today and monitor daily. Objective: NAD, alert and oriented, fluent speech, calm. Normocephalic skull Neck supple, midline trachea Lungs clear, normal rate and effort. Heart regular, no murmur gallop or rub. Abdomen is soft, non distended and non tender. Extremities are free of edema. Skin is free of rash or lesions. Joints are not swollen or deformed. Judgment appears to be normal. ECG: Sinus rhythm with T-wave inversions V1 through V3 and no other changes noted. This is unchanged from prior. Laboratories are notable for a white count of 12.1 and a potassium of 2.7. IMAGING: CTAP: Appearance of thickening and incomplete distention within the left colon as described above. Overall appearance is suspicious for colitis given mild appearance of surrounding inflammatory change. This is likely related to infection/inflammation. No abscess. CXR: No acute pulmonary process A/P: 1. Acute on chronic diarrhea, active. 2. Transient rectal bleeding, improved. Hgb dropped to 11.5. 3. Severe hypokalemia/hypomagnesemia, active. 4. Colitis on CT scan. Active. 5. Abnormal ECG with T-wave inversions, stable compared to previous. 6. Hyponatremia with sodium 135, active. PLAN: -stool PCR ordered 08/21, still pending collection -IV fluids with normal saline. -potassium/mag repletion and monitor. -monitor for rectal bleeding, monitor hemoglobin. -consult General surgery: discussed Anticipate 1 more midnight in the hospital, supports inpatient status. Full resuscitation. is proxy decision maker. Exam Vital Signs (past 8 hours): - 08/22/25 05:00 08/22/25 08:00 Temperature 98.7 F 98.8 F Pulse Rate 68 69 Respiratory Rate 16 20 Blood Pressure 97/63 101/64 Pulse Oximetry 95 95 Oxygen Flow Rate 1.5 1 Oxygen Delivery Method Room Air Oxygen Flow Rate 1 Objective Labs 08/22/25 06:20 08/22/25 06:20 Labs: Laboratory Results - last 24 hr 08/21/25 08/21/25 08/22/25 11:40 17:04 06:20 WBC 12.1 H 7.5 RBC 4.82 3.83 L Hgb 14.2 11.5 L Hct 41.7 33.4 L MCV 86.4 87.3 MCH 29.4 29.9 MCHC 34.0 34.3 RDW 13.3 13.5 Plt Count 422 H 291 Neut % (Auto) 76.4 H 63.6 Lymph % (Auto) 12.8 L 21.1 L [place] % (Auto) 9.4 13.1 Eos % (Auto) 0.7 L 1.5 L Baso % (Auto) 0.7 0.7 Neut # (Auto) 9200 H 4800 Lymph # (Auto) 1600 1600 [place] # (Auto) 1100 H 1000 H Eos # (Auto) 100 100 Baso # (Auto) 100 100 PT 12.5 INR 1.1 APTT 26 Sodium 135 L 135 L 138 Potassium 2.7 L* 3.0 L 3.0 L Chloride 94 L 100 102 Carbon Dioxide 29 27 31 BUN 12 10 6 L Creatinine 0.73 0.69 0.67 Estimated GFR > 60 > 60 > 60 BUN/Creatinine Ratio 16.4 14.5 9.0 Glucose 135 H 95 99 Calcium 9.5 7.8 L 7.8 L Magnesium 1.7 1.5 L Total Bilirubin 0.4 AST 24 ALT 17 Alkaline Phosphatase 90 Troponin I < 0.012 < 0.012 Total Protein 7.8 Albumin 4.3 Globulin 3.5 Albumin/Globulin Ratio 1.2 Lipase 250 [facility] Social History household members: spouse Smoking Status: Never smoker alcohol intake: current Assessment & Plan Time-Based Coding :: [TOTAL MINUTES] spent with patient and on the chart (including review of chart, obtaining history, exam, reviewing outside data, placing orders, documenting exam and treatment plan, and counseling patient) on [DATE].
[2025-08-22] MEDS: MAGNESIUM SULFATE 2 GM/50 ML PIGGYBACK IV (10:16)
[2025-08-22 12:00] VITALS: BP 100/59; PULSE 69; RESP 22; TEMP 36.6; O2SAT 95
[2025-08-22 13:17] LABS: Clostridium difficile toxin AB Not Detected (Not Detect); Enteroaggregative E.coli Not Detected (Not Detect); Enteropathogenic E.coli Not Detected (Not Detect); Enterotoxigenic E.coli It/st Not Detected (Not Detect); Plesiomonsa shigelloides Not Detected (Not Detect); Shiga-like toxin-prod E.coli Not Detected (Not Detect)
[2025-08-22] MEDS: POTASSIUM CHLORIDE IN WATER 10 MEQ/100 ML PIGGYBACK 100 MEQ IV ×4 (13:28→20:06)
--- NOTE | 2025-08-22 14:19 | CM.DANOTE ---
Patient is a 70 yo female who was admitted OBS Status on 08/21/25 for Abd Pain. Pt has [facility] for insurance and her PCP is Sanjuana Gunn. EMR was reviewed. Per MD, pt with hx of anxiety and depression and osteoarthritis and she is admitted for Acute diarrhea, severe hypokalemia, and colitis. Stool sample sent to r/o CDiff. Pt remains on clears. Currently on 1LO2. SW met bedside with pt and explained role and she confirms she lives at home in [place] with her of 43 years and they are both active and independent at baseline. Pt does not use DME to ambulate and still drives but confirms with her week or two with diarrhea and feeling poorly she has needed increased assist from her . Pt does not use oxygen at home at baseline. Pt denies any hx of HH or SNF. Preference is home and confirms her is also retired and available to assist as needed. Plan: SW to follow for pt to tolerate eventual advancing of her diet and to wean to room air and CDiff panel to return for plan of home with spouse assist when stable. SW to follow for any further identified discharge planning needs. 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 No Advance Directives No on File History Provided By Patient,Medical Record Has Patient been No admitted in last 30 days? Prior Living House Arrangements Household Members spouse Type of Drives own vehicle transporation used prior to admit Independent with ADL Yes 's Is patient alert and Yes oriented? Caregiver for No Another Barriers to No Discharge Discharge Plan Home Transportation Spouse plans to transport at d/c Arrangement Referrals Initiated None needed Whiteboard Updated Yes in Patient Room with name and ext. # of [facility] Review Status In Process Please Provide Date 08/22/25 Initial DC Assessment Was Performed Next Review Type Continued Stay Review
[2025-08-22 16:02] VITALS: BP 98/60; PULSE 71; RESP 19; TEMP 37.3; O2SAT 95
--- NOTE | 2025-08-22 16:32 | PM.CN.IH.1 ---
History of Present Illness Consult details Date Patient Seen: 08/22/25 Time Patient Seen: 16:32 Chief complaint: lower colon pain blood in stool Narrative: Called to evaluate this 70 year old female who was admitted to [facility] with complaints of worsening diarrhea and small clots within the stool. The patient reports that she has had diarrhea ?at least 20 years. She notes slight nausea in association with the diarrhea and left lower quadrant pain over the last couple of days. Currently she is without discomfort. She has had only 1 bowel movement today which had a small amount of clotted blood. She has never noted hematochezia or melena previously. She does report episodic GERD occurring at least 4 times per week. She does not take a PPI and has never had upper endoscopy. She notes the diarrhea which has lasted over the course of 20 years is now worse. She states frequently she is incontinent of stool. She does not go out to eat or travel any longer due to an inability to control the diarrhea. She has seen multiple physicians regarding this according to her , but no one has been able to determine the cause. On presentation, she had a mild elevation in her white count as well as descending colitis per CT. Her last colonoscopy was 10 years ago and she was noted to have polyps, however, she does not know the pathology. She has remained afebrile throughout. She has had no recent unintentional weight loss. Meds Home Medications and Allergies Home Medications ?Medication ?Instructions ?Recorded ?Confirmed ?Type sertraline [Zoloft] PO 05/14/19 02/24/21 History bupropion HCl 300 mg 24 hr tablet, 300 mg PO QAM 08/21/25 08/21/25 History extended release meloxicam 7.5 mg tablet 7.5 mg PO BID 08/21/25 08/21/25 History pravastatin 20 mg tablet 20 mg PO DAILY 08/21/25 08/21/25 History sertraline 100 mg tablet 100 mg PO DAILY 08/21/25 08/21/25 History trazodone 100 mg tablet 100 mg PO ONCE PM 08/21/25 08/21/25 History Allergies Allergy/AdvReac Type Severity Reaction Status Date / Time No Known Drug Allergies Allergy Unverified 02/24/21 14:03 Review of Systems Review of Systems ROS: Yes All systems reviewed with the patient and are negative except as otherwise documented Exam Vital Signs (past 8 hours): - 08/22/25 12:00 Temperature 97.8 F Pulse Rate 69 Respiratory Rate 22 Blood Pressure 100/59 L Pulse Oximetry 95 Oxygen Flow Rate 1 Oxygen Delivery Method Nasal Cannula Oxygen Flow Rate 1 Narrative Exam Narrative: Atraumatic, normocephalic Alert and oriented x4 Good dentition; trachea midline Regular rate and rhythm without murmur Good chest wall excursion; no wheezes rales or rhonchi Abdomen mildly protuberant and nontender; good bowel sounds over 4 quadrants. No peritoneal signs. Rectal per hospitalist revealed guaiac positive with normal sphincter tone Moves all extremities x4 Objective Imaging CT scan - abdomen: Radiologist's impression: Patient: Scarlet Smith MR#: [id number] : 1955 Acct:[id number] Age/Sex: 70 / F Date of Service: 08/21/25 Loc: ED Accession Number: [id number] Procedure: CT abdomen pelvis w con Ordering Provider: Radha Strange PA-C PROCEDURE: CT ABDOMEN PELVIS W CON INDICATIONS: LLQ abd pain; BRB in stool today; chronic diarrhea, nausea TECHNIQUE: After the administration of intravenous contrast, axial sections acquired from the lung bases to the pubic symphysis. Coronal and sagittal reformats were performed. For radiation dose reduction, the following was used: automated exposure control, adjustment of mA and/or kV according to patient size. COMPARISON: None. FINDINGS: Image quality: Diagnostic. Lower Chest: No significant findings. ABDOMEN: Liver: No solid mass. Gallbladder: Luminal stones without wall thickening. Biliary ducts: No biliary dilation. Pancreas: No ductal dilation. Spleen: Size is within normal limits. Adrenal Glands: No adrenal nodules. Kidneys and Ureters: No hydronephrosis. No solid mass. No complex renal cystic lesion which requires follow up. Stomach and Bowel: No obstruction. There is collapse of the sigmoid colon with wall thickening extending to a less severe degree within the descending colon. Very minimal pericolonic inflammatory change.. Hiatal hernia with prominent distal esophageal thickening. Peritoneum: No abnormal intraperitoneal fluid. No free air. Ventral Wall: No significant ventral hernia. Abdominal Nodes: No retroperitoneal or mesenteric adenopathy by size criteria. Multiple punctate mesenteric lymph nodes are present particularly within the lower abdomen and pelvis. Vessels: Aorta and inferior vena cava are normal in size. PELVIS: Pelvic Organs: Unremarkable. Bladder: No bladder wall thickening, accounting for underdistention. Pelvic Nodes: No enlarged lymph nodes. Multiple punctate mesenteric lymph nodes are present within the pelvis. Miscellaneous: No inguinal hernias are seen. Bones: No aggressive osseous abnormality. IMPRESSION: Appearance of thickening and incomplete distention within the left colon as described above. Overall appearance is suspicious for colitis given mild appearance of surrounding inflammatory change. This is likely related to infection/inflammation. No abscess. Dictated by: Ruchi Linder M.D. on 08/21/2025 at 12:54 Approved by: Ruchi Linder M.D. on 08/21/2025 at 12:57 Labs 08/22/25 06:20 08/22/25 06:20 Labs: Laboratory Results - last 24 hr 08/21/25 08/21/25 08/22/25 11:35 17:04 06:20 WBC 7.5 RBC 3.83 L Hgb 11.5 L Hct 33.4 L MCV 87.3 MCH 29.9 MCHC 34.3 RDW 13.5 Plt Count 291 Neut % (Auto) 63.6 Lymph % (Auto) 21.1 L [place] % (Auto) 13.1 Eos % (Auto) 1.5 L Baso % (Auto) 0.7 Neut # (Auto) 4800 Lymph # (Auto) 1600 [place] # (Auto) 1000 H Eos # (Auto) 100 Baso # (Auto) 100 Sodium 135 L 138 Potassium 3.0 L 3.0 L Chloride 100 102 Carbon Dioxide 27 31 BUN 10 6 L Creatinine 0.69 0.67 Estimated GFR > 60 > 60 BUN/Creatinine Ratio 14.5 9.0 Glucose 95 99 Calcium 7.8 L 7.8 L Magnesium 1.5 L Troponin I < 0.012 Stl C. cayetanensis PCR Not detected Stool Rotavirus (PCR) Not detected Stool Adenovirus (PCR) Not detected Stool Astrovirus (PCR) Not detected Stool Cryptosporidium PCR Not detected Stl E.coli Shiga Tox PCR Not detected St Sh/Enteroin Ecoli PCR Not detected Stl Enterotoxigenic E PCR Not detected Stool EPEC (PCR) Not detected Stl E. histolytica PCR Not detected Stool Giardia Lamblia PCR Not detected Stool Sapovirus (PCR) Not detected Stl P. shigelloides PCR Not detected St Y.enterocolitica PCR Not detected Stool Vibrio (PCR) Not detected Stl Vibrio cholerae PCR Not detected Stl Enteroaggr Ecoli PCR Not detected Stl Norovirus GI/GII PCR Not detected Campylobacter (PCR) Not detected C. difficile Tox (PCR) Not detected Salmonella (PCR) Not detected PFSH Social History household members: spouse Tobacco & Substance Use Smoking Status: Never smoker alcohol intake: current Assessment & Plan Assessment & Plan narrative: 70-year-old female with chronic diarrhea, admitted with guaiac-positive stools and colitis per CT -we will repeat a CBC this afternoon in order to ensure that her developing anemia is stable; she has remained with a hemoglobin between 13 and 14 however was noted to have a hemoglobin of 11 earlier this morning. We will repeat to ensure that it is stable -recommend placing patient on antibiotics for colitis -would recommend treatment of colitis then endoscopy as an outpatient to include both EGD and colonoscopy. This is of course as long as the patient does not continue to have diminishing of her hemoglobin. The patient does have significant upper GI symptoms which bear evaluation. This was discussed at length with the patient and her who are in agreement. I have recommended that she consider the use of a probiotic while at home. -we will sign off to Dr. Cruz Time-Based Coding :: [TOTAL MINUTES] spent with patient and on the chart (including review of chart, obtaining history, exam, reviewing outside data, placing orders, documenting exam and treatment plan, and counseling patient) on [DATE]. PROFEE Charge Codes Inpatient or Observation consultation: [id number]
[2025-08-22 17:23] LABS: Hematocrit 33.9 % (36-46); Hemoglobin 11.6 g/dL (12.0-16.0); Mean Corpuscular HGB Conc 34.1 % (30-36); Mean Corpuscular Hemoglobin 29.9 PG (26-34); Mean Corpuscular Volume 87.7 fL (80-100); Platelet Count 346 X10^3/uL (150-400)
[2025-08-22 17:24] LABS: Add Manual Diff / Slide Review YES
[2025-08-22 18:17] LABS: Band Neutrophils Percent 1.0 % (3-7); Eosinophils Percent Manual 1.0 % (2-4); Lymphocytes Percent Manual 33.0 % (25-45); Monocytes Percent Manual 8.0 % (2-11); Neutrophils Absolute Manual 4524 /uL (3000-5900); Segmented Neutrophils Percent 57.0 % (38-70); Total Cells Counted 100
[2025-08-22 18:18] LABS: RBC Morphology Normal Morphology
[2025-08-22 20:00] VITALS: BP 115/72; PULSE 67; RESP 18; TEMP 37.2; O2SAT 92
[2025-08-23] VITALS: BP 107/60; PULSE 68; RESP 17; TEMP 36.6; O2SAT 92
[2025-08-23] MEDS: SODIUM CHLORIDE 0.9% 1,000 ML 100 ML IV ×2 (02:14→12:02)
[2025-08-23 04:00] VITALS: BP 105/58; PULSE 60; RESP 17; TEMP 35.8; O2SAT 92
[2025-08-23 06:35] LABS: Add Manual Diff / Slide Review NO; Hematocrit 33.1 % (36-46); Hemoglobin 11.3 g/dL (12.0-16.0); Lymphocytes Absolute Auto 1500 /uL (1100-4500); Mean Corpuscular HGB Conc 34.3 % (30-36); Mean Corpuscular Hemoglobin 29.9 PG (26-34); Mean Corpuscular Volume 87.2 fL (80-100); Platelet Count 301 X10^3/uL (150-400)
[2025-08-23 06:51] LABS: Blood Urea Nitrogen 3 mg/dL (7-17); Calcium 8.1 mg/dL (8.4-10.2); Carbon Dioxide 30 mmol/L (22-32); Chloride 106 mmol/L (98-107); Estimated Glomerular Filt Rate > 60 mL/min (>60); Glucose 93 mg/dL (70-99); HEMOLYSIS < 15 (0-50); Magnesium 2.1 mg/dL (1.6-2.3); Potassium 2.9 mmol/L (3.4-5.1); Sodium 140 mmol/L (137-145)
[2025-08-23 08:00] VITALS: BP 113/62; PULSE 67; RESP 14; TEMP 36.9; O2SAT 91
[2025-08-23] MEDS: POTASSIUM CHLORIDE IN WATER 10 MEQ/100 ML PIGGYBACK 100 MEQ IV ×6 (08:07→14:10)
[2025-08-23] MEDS: SERTRALINE 50 MG TABLET 100 MG PO (08:07)
[2025-08-23] MEDS: PRAVASTATIN 20 MG TABLET PO (08:07)
[2025-08-23 12:00] VITALS: BP 125/74; PULSE 66; RESP 14; TEMP 36.4; O2SAT 93
--- NOTE | 2025-08-23 12:35 | CM.DPC ---
DCP Cont. Reviewed EMR and team rounds for pt's medical status and updates. Per Hospitalist, pt will be medically stable for home d/c on 08/24. [facility] will provide transport. Monitoring for final needs, although none are anticipated at this time.
--- NOTE | 2025-08-23 13:56 | P.PN_ITS ---
Subjective Subjective Date Patient Seen: 08/23/25 Interval history: 70-year-old female with a history of anxiety, depression, osteoarthritis, HLD, insomnia, and chronic diarrhea. She was had diarrhea for as long as she can remember. She presented today because of abdominal cramping, left lower quadrant pain, and transient bright red blood per rectum. She denies nausea. She he was not currently followed by GI. She was no history of inflammatory bowel disease. She also denies history of diverticulitis. Imaging in the ED was fairly unremarkable. Her potassium was 2.7, and 40 mEq was started in the ED. ECG reveals T-wave inversions V1 through V3 which is on remarkable and unchanged when compared to a previous ECG from [facility]. She denies any chest pain, or dyspnea. She lives in [place]. 08/22: Continues with liquid stool now with blood clots. First attempt today at obtaining stool sample was contaminated by urine. Hoping to get that done today as C diff is certainly a possibility. Hemoglobin dropped from 14.2 down to 11.5. Magnesium dropped 1.7 down to 1.5. Potassium remained at 3.0 despite receiving IV potassium in the ED. Discussed with General surgery regarding potential for colonoscopy at some point. We will supplement with potassium and magnesium today and monitor daily. 08/23: C diff and other panel tests are negative. Magnesium up to 2.1. Potassium remains low at 2.9. She is receiving additional 40 IV and will be placed on oral potassium. General surgery saw her yesterday and suggested antibiotics for colitis. They are deferring colonoscopy at this time. She has become interested in going home which seems to be a good sign. She continues with diarrhea, no longer bloody. Advanced to full liquid diet yesterday. Objective: NAD, alert and oriented, fluent speech, calm. Normocephalic skull Neck supple, midline trachea Lungs clear, normal rate and effort. Heart regular, no murmur gallop or rub. Abdomen is soft, non distended and non tender. Bowel sounds normal. Extremities are free of edema. Skin is free of rash or lesions. Joints are not swollen or deformed. Judgment appears to be normal. ECG: Sinus rhythm with T-wave inversions V1 through V3 and no other changes noted. This is unchanged from prior. Laboratories are notable for a white count of 12.1 and a potassium of 2.7. IMAGING: CTAP: Appearance of thickening and incomplete distention within the left colon as described above. Overall appearance is suspicious for colitis given mild appearance of surrounding inflammatory change. This is likely related to infection/inflammation. No abscess. CXR: No acute pulmonary process A/P: 1. Acute on chronic diarrhea, active. 2. Transient rectal bleeding, improved. Hgb dropped to 11.5 and has remained stable. 3. Severe hypokalemia/hypomagnesemia, active. 4. Colitis on CT scan. Active. 5. Abnormal ECG with T-wave inversions, stable compared to previous. 6. Hyponatremia with sodium 135, active. PLAN: -stool PCR tests are all negative -IV fluids stopped on 08/23 -Continue potassium supplementation IV and begin daily oral potassium. -monitor for rectal bleeding, monitor hemoglobin. -consult General surgery: recommend defer for inpatient colonoscopy but proceed with panendoscopy by GI as an outpatient. Anticipate discharge home once the potassium stabilizes. Full resuscitation. is proxy decision maker. Exam Vital Signs (past 8 hours): - 08/23/25 08:00 08/23/25 12:00 Temperature 98.5 F 97.5 F L Pulse Rate 67 66 Respiratory Rate 14 14 Blood Pressure 113/62 125/74 Pulse Oximetry 91 93 Oxygen Flow Rate 0 0 Oxygen Delivery Method Nasal Cannula Oxygen Flow Rate 0 Objective Labs 08/23/25 05:51 08/23/25 05:51 Labs: Laboratory Results - last 24 hr 08/22/25 08/23/25 16:55 05:51 WBC 7.8 6.3 RBC 3.87 L 3.79 L Hgb 11.6 L 11.3 L Hct 33.9 L 33.1 L MCV 87.7 87.2 MCH 29.9 29.9 MCHC 34.1 34.3 RDW 13.3 13.3 Plt Count 346 301 Neut % (Auto) Not Reportable 63.9 Lymph % (Auto) Not Reportable 23.1 L [place] % (Auto) Not Reportable 11.1 Eos % (Auto) Not Reportable 1.4 L Baso % (Auto) Not Reportable 0.5 Neut # (Auto) 4100 Lymph # (Auto) Not Reportable 1500 [place] # (Auto) Not Reportable 700 Eos # (Auto) 100 Baso # (Auto) Not Reportable 0 Total Counted 100 Seg Neutrophils % 57.0 Band Neutrophils % 1.0 L Lymphocytes % (Manual) 33.0 Monocytes % (Manual) 8.0 Eosinophils % (Manual) 1.0 L Neutrophils # (Manual) 4524 Platelet Estimate Adequate on smear Plt Morphology Comment A RBC Morphology Normal morphology Sodium 140 Potassium 2.9 L Chloride 106 Carbon Dioxide 30 BUN 3 L Creatinine 0.53 Estimated GFR > 60 BUN/Creatinine Ratio 5.7 L Glucose 93 Calcium 8.1 L Magnesium 2.1 PFSH Social History household members: spouse Smoking Status: Never smoker alcohol intake: current Assessment & Plan Time-Based Coding :: [TOTAL MINUTES] spent with patient and on the chart (including review of chart, obtaining history, exam, reviewing outside data, placing orders, documenting exam and treatment plan, and counseling patient) on [DATE].
[2025-08-23] MEDS: PIPERACILLIN/TAZO 3.375 GM in SODIUM CHLORIDE 0.9% 100 ML IV ×2 (15:12→22:36)
[2025-08-23] MEDS: POTASSIUM CHLORIDE 20 MEQ TAB 40 MEQ PO (15:12)
[2025-08-23 16:00] VITALS: BP 129/76; PULSE 64; RESP 14; TEMP 36.4; O2SAT 92
[2025-08-23 16:16] LABS: HEMOLYSIS < 15 (0-50); Potassium 3.5 mmol/L (3.4-5.1)
[2025-08-23 20:00] VITALS: BP 137/76; PULSE 66; RESP 19; TEMP 37.4; O2SAT 94
[2025-08-23] MEDS: ACETAMINOPHEN 325 MG TABLET 650 MG PO (20:10)
[2025-08-24 04:00] VITALS: BP 117/71; PULSE 57; RESP 17; TEMP 36.8; O2SAT 93
[2025-08-24] MEDS: PIPERACILLIN/TAZO 3.375 GM in SODIUM CHLORIDE 0.9% 100 ML IV ×3 (05:38→21:34)
[2025-08-24 06:52] LABS: Add Manual Diff / Slide Review NO; Hematocrit 35.5 % (36-46); Hemoglobin 11.9 g/dL (12.0-16.0); Lymphocytes Absolute Auto 1400 /uL (1100-4500); Mean Corpuscular HGB Conc 33.5 % (30-36); Mean Corpuscular Hemoglobin 29.6 PG (26-34); Mean Corpuscular Volume 88.2 fL (80-100); Platelet Count 339 X10^3/uL (150-400)
[2025-08-24 06:58] LABS: Blood Urea Nitrogen 3 mg/dL (7-17); Calcium 8.6 mg/dL (8.4-10.2); Carbon Dioxide 30 mmol/L (22-32); Chloride 106 mmol/L (98-107); Estimated Glomerular Filt Rate > 60 mL/min (>60); Glucose 102 mg/dL (70-99); HEMOLYSIS < 15 (0-50); Potassium 3.3 mmol/L (3.4-5.1); Sodium 142 mmol/L (137-145)
[2025-08-24] MEDS: SERTRALINE 50 MG TABLET 100 MG PO (07:51)
[2025-08-24] MEDS: PRAVASTATIN 20 MG TABLET PO (07:51)
[2025-08-24] MEDS: POTASSIUM CHLORIDE 20 MEQ TAB 40 MEQ PO ×2 (07:51→14:50)
[2025-08-24 08:23] VITALS: BP 133/64; PULSE 58; RESP 14; TEMP 37.2; O2SAT 95
[2025-08-24] MEDS: ACETAMINOPHEN 325 MG TABLET 650 MG PO ×2 (09:45→20:35)
--- NOTE | 2025-08-24 10:34 | CM.DPC ---
DCP Cont: Per MD, pt still with some diarrhea but no longer bloody stool and starting to feel better and likely from colitis as CDiff panel negative. Slowly advancing diet for possible d/c today vs tomorrow. Per RN, pt has been independent in room and no concerns noted. Ambulating well. Per UR RN, pt was changed from OBS Status to Inpt on 08/22/25. Plan: SW to follow for plan of home with supportive spouse when stable, likely in another day pending advancing diet. No needs anticipated. BALDEMAR Mcdonald
--- NOTE | 2025-08-24 15:58 | P.PN_ITS ---
Subjective Subjective Interval history: 62-year-old female with history of anxiety/depression, osteoarthritis, hyperlipidemia, insomnia, and chronic diarrhea. She was admitted on August 21 with colitis and severe hypokalemia/hypomagnesemia. She reports she continues to have diarrhea. She would 2 episodes overnight. She notes decreased volume overall but the same frequency as admission. She continues to feel quite weak. Exam Vital Signs (past 8 hours): - 08/24/25 08:23 Temperature 99.0 F Pulse Rate 58 L Respiratory Rate 14 Blood Pressure 133/64 Pulse Oximetry 95 Oxygen Flow Rate 0 Oxygen Delivery Method Nasal Cannula Oxygen Flow Rate 0 Narrative Exam Narrative: GEN: Middle-aged female, Alert and oriented x 3, NAD HEENT:NC, Face symmetric CHEST: Respiratory excursions symmetric, CTAB CV: RRR, no M/R/G ABD: Soft, mild left lower quadrant tenderness/ND, BT present in all 4 quadrants, no organomegaly or masses EXTR: warm, well perfused, no C/C/E SKIN: warm and dry, no rash NEURO: Alert and oriented x 3, nonfocal Objective Labs 08/24/25 06:10 08/24/25 06:10 Labs: Laboratory Results - last 24 hr 08/23/25 08/24/25 15:55 06:10 WBC 7.6 RBC 4.02 Hgb 11.9 L Hct 35.5 L MCV 88.2 MCH 29.6 MCHC 33.5 RDW 13.7 Plt Count 339 Neut % (Auto) 70.7 Lymph % (Auto) 18.2 L [place] % (Auto) 9.3 Eos % (Auto) 1.3 L Baso % (Auto) 0.5 Neut # (Auto) 5400 Lymph # (Auto) 1400 [place] # (Auto) 700 Eos # (Auto) 100 Baso # (Auto) 0 Sodium 142 Potassium 3.5 3.3 L Chloride 106 Carbon Dioxide 30 BUN 3 L Creatinine 0.65 Estimated GFR > 60 BUN/Creatinine Ratio 4.6 L Glucose 102 H Calcium 8.6 PFSH Social History household members: spouse Smoking Status: Never smoker alcohol intake: current Assessment & Plan Assessment & Plan narrative: 1. Colitis with acute on chronic diarrhea Overall, the volume of diarrhea has improved but the frequency has persisted. She continues on IV Zosyn. Appreciate general surgery consultation. Recommendations are for outpatient panendoscopy per Gastroenterology. She does not wish to advance her diet from full liquids as of yet. 2. Transient rectal bleeding Resolved. Hemoglobin is stable at 11.9. 3. Severe hypokalemia/hypomagnesemia Potassium is improved overall and up to 3.3 today. Magnesium has normalized and is 2.1 as of yesterday. We will continue to replete potassium and continue close monitoring. 4. Abnormal EKG with T-wave inversions This was reportedly stable compared to prior. There was report of prolonged QTC at 0.483 5. Hyponatremia Resolved Code status Full Prophylaxis Chemical prophylaxis was deferred in the setting of rectal bleeding Disposition Home once potassium has normalized and diarrhea has improved Time-Based Coding :: [TOTAL MINUTES] spent with patient and on the chart (including review of chart, obtaining history, exam, reviewing outside data, placing orders, documenting exam and treatment plan, and counseling patient) on [DATE].
[2025-08-24 16:00] VITALS: BP 127/59; PULSE 71; RESP 14; TEMP 37.2; O2SAT 100
[2025-08-24 20:00] VITALS: BP 124/73; PULSE 70; RESP 19; TEMP 37.3; O2SAT 95
[2025-08-25 03:00] VITALS: BP 138/72; PULSE 64; RESP 16; TEMP 36.3; O2SAT 97
[2025-08-25] MEDS: PIPERACILLIN/TAZO 3.375 GM in SODIUM CHLORIDE 0.9% 100 ML IV (05:34)
[2025-08-25 06:55] LABS: Add Manual Diff / Slide Review NO; Hematocrit 35.9 % (36-46); Hemoglobin 12.1 g/dL (12.0-16.0); Lymphocytes Absolute Auto 1500 /uL (1100-4500); Mean Corpuscular HGB Conc 33.7 % (30-36); Mean Corpuscular Hemoglobin 29.6 PG (26-34); Mean Corpuscular Volume 87.9 fL (80-100); Platelet Count 370 X10^3/uL (150-400)
[2025-08-25 07:02] LABS: Blood Urea Nitrogen 4 mg/dL (7-17); Calcium 8.6 mg/dL (8.4-10.2); Carbon Dioxide 27 mmol/L (22-32); Chloride 107 mmol/L (98-107); Estimated Glomerular Filt Rate > 60 mL/min (>60); Glucose 112 mg/dL (70-99); HEMOLYSIS < 15 (0-50); Potassium 3.4 mmol/L (3.4-5.1); Sodium 141 mmol/L (137-145)
[2025-08-25] MEDS: POTASSIUM CHLORIDE 20 MEQ TAB 40 MEQ PO (08:23)
[2025-08-25] MEDS: PRAVASTATIN 20 MG TABLET PO (08:24)
[2025-08-25] MEDS: SERTRALINE 50 MG TABLET 100 MG PO (08:24)
[2025-08-25 11:00] VITALS: BP 130/84; PULSE 71; RESP 16; TEMP 37; O2SAT 96
--- NOTE | 2025-08-25 17:23 | P.DS_ITS ---
History of Present Illness History of Present Illness Chief complaint: lower colon pain blood in stool Narrative: Per H&P: Patient was a 62-year-old female with a history of anxiety, depression, osteoarthritis, HLD, insomnia, and chronic diarrhea. She was had diarrhea for as long as she can remember. She presented today because of abdominal cramping, left lower quadrant pain, and transient bright red blood per rectum. She denies nausea. She he was not currently followed by GI. She was no history of inflammatory bowel disease. She also denies history of diverticulitis. Imaging in the ED was fairly unremarkable. Her potassium was 2.7, and 40 mEq was started in the ED. ECG reveals T-wave inversions V1 through V3 which is on remarkable and unchanged when compared to a previous ECG from [facility]. She denies any chest pain, or dyspnea. She lives in [place]. Discharge Providers Provider Date of admission: 08/22/25 16:04 Discharge Date: 08/25/25 Primary care physician: MITZI Andrea Consults: 08/22/25 10:00 Consult to General Surgery Routine Comment: Consulting Provider: Samantha Power Reason for consultation: Bloody Stool Has provider been notified: Yes Discharge provider: Shanda Huddleston MD Summary Hospital Course Discharge Diagnosis: 1. Colitis with acute on chronic diarrhea, improved 2. Transient rectal bleeding, resolved 3. Anemia, stable with hemoglobin 11.9 4. Severe hypokalemia, improved 5. Hypomagnesemia, resolved 6. Abnormal EKG with T-wave inversions, chronic 7. Prolonged QTC at 0.483, stable 8. Hyponatremia, resolved Hospital Course: Patient has a history of anxiety/depression, osteoarthritis, hyperlipidemia, insomnia, and chronic diarrhea. She was admitted on August 21 with acute colitis in the setting of chronic diarrhea. CT imaging revealed thickening and incomplete distention within the left colon with overall appearance suspicious for colitis given the surrounding inflammatory change. This was felt likely related to infection/inflammation. No abscess was noted. She was initiated on IV antibiotics. On admission, she was also noted to have severe hypokalemia and hypomagnesemia. At the time of admission, her potassium was as low as 2.7. With aggressive repletion, it improved and was up to 3.4 on the date of discharge. Her magnesium was 1.7 on admission with a li of 1.5 on August 22. With repletion it improved to 2.1 by August 23. General surgery consulted and felt that although she had guaiac-positive stools, in the setting of colitis and chronic diarrhea, she would best be served with outpatient panendoscopy after resolution of her acute colitis. Over the ensuing days, patient did have some mild ongoing small clots in her diarrhea, but by the date of discharge she had not had any for the prior 24 hours. Her hemoglobin was stable. Her volume of diarrhea was significantly decreasing. She was also tolerating a regular low residue diet. She is discharging on a course of empiric antibiotics with Keflex and metronidazole. She will continue on oral potassium chloride and is encouraged to follow-up with her PCP to have a recheck of her labs to ensure her hypokalemia fully resolves. She is encouraged to have follow-up panendoscopy in 4-6 weeks once she has had full resolution of her acute colitis. Patient is discharged in stable condition Status at Discharge Cognitive/behavioral status at discharge: at baseline, oriented Functional status at discharge: independent ambulation Overall status at discharge: patient is progressing back to baseline Time Spent with Patient Time spent: Less than 30 minutes Exam Vital Signs (past 8 hours): - 08/25/25 11:00 Temperature 98.6 F Pulse Rate 71 Respiratory Rate 16 Blood Pressure 130/84 Pulse Oximetry 96 Oxygen Delivery Method Nasal Cannula Oxygen Flow Rate 0 Narrative Exam Narrative: GEN: Middle-aged female, Alert and oriented x 3, NAD HEENT:NC, Face symmetric CHEST: Respiratory excursions symmetric, CTAB CV: RRR, no M/R/G ABD: Soft, NT/ND, BT present in all 4 quadrants, body habitus limits exam EXTR: warm, well perfused, no C/C/E SKIN: warm and dry, no rash NEURO: Alert and oriented x 3, nonfocal Objective Labs 08/25/25 06:41 08/25/25 06:41 Labs: Laboratory Results - last 24 hr 08/25/25 06:41 WBC 8.5 RBC 4.09 Hgb 12.1 Hct 35.9 L MCV 87.9 MCH 29.6 MCHC 33.7 RDW 13.8 Plt Count 370 Neut % (Auto) 69.9 Lymph % (Auto) 17.5 L [place] % (Auto) 9.6 Eos % (Auto) 1.5 L Baso % (Auto) 1.5 Neut # (Auto) 5900 Lymph # (Auto) 1500 [place] # (Auto) 800 Eos # (Auto) 100 Baso # (Auto) 100 Sodium 141 Potassium 3.4 Chloride 107 Carbon Dioxide 27 BUN 4 L Creatinine 0.63 Estimated GFR > 60 BUN/Creatinine Ratio 6.3 Glucose 112 H Calcium 8.6 PFSH Social History household members: spouse Smoking Status: Never smoker alcohol intake: current Discharge Plan Discharge Plan Patient Disposition: Home Provider Discharge Comment: You were admitted with colitis in the setting chronic diarrhea. He developed severe electrolyte abnormalities with low potassium as well as low magnesium. We have been advancing your diet and you are now tolerating a more normal diet. I have recommended that you stick with a low-fiber diet for the next several days to week while your bowels normalize. I will be sending you on extra potassium which she should take over the next 2 weeks and suggest you have follow-up labs checked to ensure that your potassium remains within normal limits after that. You should have a colonoscopy performed in 4-6 weeks which will give you time to heal from your colitis. Return to the ED: Increased shortness of breath/chest pain. Inability to hold down food/fluids/medications. Fevers/chills. Discharge orders & Medications Prescriptions: New cephalexin 500 mg capsule 500 mg PO QID Qty: 28 0RF metronidazole 500 mg tablet 500 mg PO Q8H Qty: 21 0RF potassium chloride 20 mEq tablet extended release 20 meq PO DAILY Qty: 14 0RF Continued sertraline 100 mg tablet 100 mg PO DAILY trazodone 100 mg tablet 100 mg PO ONCE PM pravastatin 20 mg tablet 20 mg PO DAILY bupropion HCl 300 mg tablet extended release 24 hr 300 mg PO QAM meloxicam 7.5 mg tablet 7.5 mg PO BID Discontinued sertraline [Zoloft] 100 mg PO DAILY Follow up/Referrals: Sanjuana Gunn ARNP [Primary Care Provider, Nursing] Discharge Health Status Multidrug resistant organism: No MDRO Diet/Activity/Treatments Diet: Diet as Tolerated and Regular Diet comment: Low fiber (low residue) Activity: As tolerated Oxygen: N/A Visit Report/Discharge Packet Instructions: Low-Fiber/Low-Residue Diet, DI for Hypokalemia, DI for Colitis Stand Alone Forms: Patient Portal/API, Stroke Signs & Symptoms Discharge Data Primary Care Provider: Sanjuana Gunn
== END 2025-08-25 17:00 | disposition home or self-care (01) | DRG 392 ==
LOC: ED 15:27 → AC 15:31
PROVIDERS: Family Medicine; Internal Medicine; Pharmacist Pharmacist Clinician (PhC)/ Clinical Pharmacy Specialist; Surgery Surgical Critical Care; Admitting Provider Hospitalist; Emergency Provider Physician Assistant; PCP Nurse Practitioner Family; Referring Provider Physician Assistant; Visit Provider Hospitalist
DX: K52.9 Noninfective gastroenteritis and colitis, unspecified (principal); E87.1 Hypo-osmolality and hyponatremia; E87.6 Hypokalemia; E83.41 Hypermagnesemia; R94.31 Abnormal electrocardiogram [ECG] [EKG]; D64.9 Anemia, unspecified; E78.5 Hyperlipidemia, unspecified; F41.9 Anxiety disorder, unspecified; F32.A Depression, unspecified; G47.00 Insomnia, unspecified
CPT/HCPCS: 36415; 71045; 74177; 80048; 80053; 82272; 83690; 83735; 84132; 84484; 85007; 85025; 85610; 85730; 87507; 93005; 94762; 96365; 96366; 96375; 99284; G0378; J1171; J2405; J2470; J2543; J3475; J7030; J7050; Q9967